=== PATIENT | male | born 1985 | race American Indian/Alaskan Native ===

== ENCOUNTER 2023-01-19 00:14 | Emergency (ER) | payer MEDICARE, MEDICAID, SELFPAY ==
[2023-01-19] VITALS (18 sets, daily range): BP systolic 120–153; BP diastolic 78–110; PULSE 80–120; RESP 18–28; TEMP 36.6; O2SAT 94–98; BMI 24.4
--- NOTE | 2023-01-19 00:30 | DI.RAD.S_ITS ---
PROCEDURE: XR ELBOW LT MIN 3V INDICATIONS: pain possible dislocation TECHNIQUE: 3 views of the elbow were acquired. COMPARISON: None. FINDINGS: Bones: Intra-articular fracture through the olecranon. The distal ulnar fracture component is dislocated anterior to the femoral trochlea. There is associated anterior dislocation of the radiocapitellar articulation. Soft tissues: Soft tissue edema is seen surrounding the elbow. IMPRESSION: Displaced olecranon fracture with anterior dislocation of the ulnar shaft fragment and anterior radiocapitellar dislocation. Approved by: Brenton Aguilar M.D. on 01/19/2023 at 0:54
--- NOTE | 2023-01-19 00:56 | ED.UPPEXIN ---
HPI - Extremity Injury (Upper) General Chief Complaint: Extremity Injury, Upper Stated Complaint: left side elbow pain Time Seen by Provider: 01/19/23 00:51 Source: patient Mode of arrival: Ambulatory History of Present Illness HPI narrative: 37-year-old male presents for dislocated left elbow. Patient states that he broke his elbow many years ago but never got it fixed. He states that occasionally his elbow we will dislocate and he is able to pull on it briefly to relocate it. Tonight after lifting an object he felt his elbow dislocated again, but was unable to pull it back into place and is here today for evaluation. Patient is screaming, requesting a popsicle stick to bite on, requesting pain medications. Further review of systems limited Review of Systems Review of Systems Narrative: limited due to patient condition Patient History Social History Smoking Status: Current every day smoker Smoking Status: Current every day smoker alcohol intake frequency: holidays/special occasions only Substance Use Type: does not use Exam Initial Vital Signs Initial Vital Signs: Vital Signs Temperature 97.9 F 01/19/23 00:20 Pulse Rate 120 H 01/19/23 00:20 Respiratory Rate 18 01/19/23 00:20 Blood Pressure 153/110 H 01/19/23 00:20 Pulse Oximetry 97 01/19/23 00:20 Oxygen Delivery Method Room Air 01/19/23 00:20 Const: Awake, alert, in pain, moderate to severe distress Cardiac: Tachycardia, regular rhythm MSK: Left elbow deformity, 2+ radial pulses Skin: Warm, Dry, intact, no rashes Neuro: AO x3, CN II-XII grossly intact, moves all extremities Procedures Orthopedic Joint Reduction Joint #1: Time Out Performed: Yes Side: left Joint Reduction Location: elbow Analgesia: procedural sedation Technique used: traction/counter-traction and direct manipulation Post-reduction neuro exam: intact and no change Post-reduction vascular: intact and no change Post Reduction X-Ray Obtained: Yes Post Reduction X-Ray Results: reduced Splint Applied: Yes Patient Tolerated Procedure: Well and No complications Orthopedic Splinting/Casting Injury #1: Side: left Upper Extremity Injury Location: elbow Upper Extremity Immobilizer: sling/shoulder immobilizer and posterior splint Post splinting neuro exam: intact and no change Post splinting vascular exam: no change Placed by: Provider Procedural Sedation Consent signed: Yes Time out performed: Yes Indication: fracture/dislocation reduction Presedation Evaluation: performed by myself ASA Class: II Mallampati Airway Classification: Class II Preparation: clinical research monitor applied, pulse oximeter, capnometry used, supplemental O2 applied, suction/airway equipment at bedside and IV secured IV Propofol dose (mg): 140 Intraservice time/total sedation time (min): 15 ED Sedation Level: Moderate (Concious) Patient Tolerated Procedure: Well and No complications Complications: none Course Orders Ordered: ED Orders 01/19/23 00:30 XR elbow LT min 3V Stat 01/19/23 01:43 XR elbow LT 2V Stat Discontinued Medications Morphine Sulfate (Morphine 4 Mg/Ml Inj) 4 mg IV NOW ONE Stop: 01/19/23 00:58 Last Admin: 01/19/23 01:19 Dose: 4 mg Documented By: ADITYA Propofol (Propofol 200 Mg/20 Ml Vial) 200 mg IV NOW ONE Stop: 01/19/23 00:58 Vital Signs Vital signs: Vital Signs - 8 hr 01/19/23 00:20 01/19/23 01:23 01/19/23 01:25 Temperature 97.9 F Pulse Rate 120 H 101 H 102 H Respiratory Rate 18 26 H 23 Blood Pressure 153/110 H Pulse Oximetry 97 97 Oxygen Delivery Method Room Air Room Air Oxygen Flow Rate 01/19/23 01:29 01/19/23 01:29 01/19/23 01:30 Temperature Pulse Rate 100 H 103 H Respiratory Rate 24 24 Blood Pressure 137/97 H Pulse Oximetry 97 96 Oxygen Delivery Method Room Air Nasal Cannula Oxygen Flow Rate 2 01/19/23 01:32 01/19/23 01:32 01/19/23 01:34 Temperature Pulse Rate 107 H 117 H Respiratory Rate 26 H 21 Blood Pressure 134/91 H Pulse Oximetry 96 97 Oxygen Delivery Method Nasal Cannula Nasal Cannula Oxygen Flow Rate 2 2 01/19/23 01:34 01/19/23 01:35 01/19/23 01:39 Temperature Pulse Rate 96 H 94 H Respiratory Rate 28 H 24 Blood Pressure 142/98 H Pulse Oximetry 97 96 94 Oxygen Delivery Method Nasal Cannula Nasal Cannula Nasal Cannula Oxygen Flow Rate 2 01/19/23 01:39 01/19/23 01:40 01/19/23 01:40 Temperature Pulse Rate 96 H Respiratory Rate 21 Blood Pressure 120/84 124/80 Pulse Oximetry Oxygen Delivery Method Nasal Cannula Nasal Cannula Nasal Cannula Oxygen Flow Rate 01/19/23 01:45 01/19/23 01:45 01/19/23 01:50 Temperature Pulse Rate 94 H 88 Respiratory Rate 18 Blood Pressure 131/78 Pulse Oximetry 97 Oxygen Delivery Method Nasal Cannula Oxygen Flow Rate 01/19/23 01:50 01/19/23 01:51 01/19/23 01:51 Temperature Pulse Rate 88 87 Respiratory Rate Blood Pressure 132/88 Pulse Oximetry 96 96 Oxygen Delivery Method Room Air Room Air Oxygen Flow Rate 01/19/23 01:55 01/19/23 01:57 01/19/23 01:57 Temperature Pulse Rate 83 85 Respiratory Rate 21 24 Blood Pressure 143/78 H Pulse Oximetry 96 95 Oxygen Delivery Method Room Air Room Air Oxygen Flow Rate 01/19/23 02:00 01/19/23 02:01 01/19/23 02:01 Temperature Pulse Rate 83 80 Respiratory Rate 23 22 Blood Pressure 136/83 Pulse Oximetry 97 95 Oxygen Delivery Method Room Air Room Air Oxygen Flow Rate 01/19/23 02:05 01/19/23 02:05 Temperature Pulse Rate 80 Respiratory Rate 24 Blood Pressure 135/90 Pulse Oximetry 96 Oxygen Delivery Method Room Air Oxygen Flow Rate MDM - Extremity Injury (Upper) Differential Diagnosis Differential diagnosis: Likely sprain and strain of wrist, fracture of wrist and dislocation of finger MDM Narrative Medical decision making narrative: Patient with chronic, longstanding elbow fracture with spontaneous dislocation, unable to be reduced at home with patient's usual methods. Patient neurovascularly intact, however he is screaming in pain and x-ray technique limited due to patient cooperation. Patient was given morphine for pain control, procedural sedation per procedure notes. Using gentle manipulation the dislocation was reduced and successfully placed in long-arm splint with pronation. Patient neurovascularly intact pre and postprocedure. Placed in sling. X-ray confirms reduction. Patient counseled on the importance of following up with Orthopedic surgery. ED return precautions discussed at bedside. Patient expressed understanding of the plan and is in agreement at this time. All questions answered at the time of discharge. Discharge Plan Departure Patient Disposition: Home Clinical Impression: Dislocated elbow Qualifiers: Encounter type: initial encounter Laterality: left Qualified Code(s): S53.105A - Unspecified dislocation of left ulnohumeral joint, initial encounter Instructions: DI for Elbow Dislocation, How to Take Care of Your Splint Referrals: Barbara Oquendo MD [Physician] - Stand Alone Forms: Patient Portal/API
[2023-01-19] MEDS: MORPHINE 4 MG/ML INJ IV (01:19)
[2023-01-19] MEDS: propofoL 200 MG/20 ML VIAL IV (01:33)
--- NOTE | 2023-01-19 01:43 | DI.RAD.S_ITS ---
PROCEDURE: XR ELBOW LT 2V INDICATIONS: post reduction attempt TECHNIQUE: Single lateral view of the elbow was acquired. COMPARISON: [facility], CR, XR ELBOW LT MIN 3V, 01/19/2023, 0:32. FINDINGS: Bones: Status post reduction with taoist of radiocapitellar and ulnar humeral alignment. Mildly displaced intra-articular fracture of the olecranon is again seen. No definite radial fracture or distal humeral fracture is identified. Soft tissues: Elbow joint effusion is present. Soft tissue edema is noted surrounding the elbow. IMPRESSION: Successful elbow reduction. Mildly displaced intra-articular fracture of the olecranon is again seen. Approved by: Brenton Aguilar M.D. on 01/19/2023 at 2:05
== END 2023-01-19 02:15 | disposition home or self-care (01) ==
PROVIDERS: Emergency Provider Emergency Medicine
DX: M24.422 Recurrent dislocation, left elbow (principal)
CPT/HCPCS: 24600; 73070; 73080; 99152; 99283; 99285; 99291; J2270; J2704

== ENCOUNTER 2023-07-17 13:30 | Emergency (ER) | payer MEDICARE, MEDICAID, SELFPAY ==
[2023-07-17] VITALS (29 sets, daily range): BP systolic 120–212; BP diastolic 62–140; PULSE 76–93; RESP 18–58; TEMP 37.2; O2SAT 92–100; BMI 30.2
--- NOTE | 2023-07-17 13:46 | DI.RAD.S_ITS ---
PROCEDURE: XR ELBOW LT MIN 3V INDICATIONS: r/o left elbow dislocation TECHNIQUE: 3 views of the elbow were acquired. COMPARISON: [facility], CR, XR ELBOW LT 2V, 01/19/2023, 1:44. [facility], CR, XR ELBOW LT MIN 3V, 01/19/2023, 0:32. FINDINGS: Bones: Fracture dislocation of the elbow, with fracture of the olecranon. Soft tissues: Large elbow joint effusion. No suspicious soft tissue calcifications. IMPRESSION: Fracture dislocation of the elbow. Differential includes a chronic nonunited fracture of t olecranon with acute dislocation. Dictated by: Yovanny Gao M.D. on 07/17/2023 at 14:46 Approved by: Yovanny Gao M.D. on 07/17/2023 at 14:47
[2023-07-17] MEDS: HYDROMORPHONE 1 MG INJ IM (13:50)
--- NOTE | 2023-07-17 14:00 | PC.NURSE ---
Provider brought to triage to assist with evaluation of patient. pateint yelling and thrashing about sorry I can't control my body Attempted to remove patients jackets and place elbow in sling but unable to due to pain and body movements of patient. Unable to get full set of vitals in triage
[2023-07-17] MEDS: SODIUM CHLORIDE 0.9% 1,000 ML 125 ML IV (19:16)
--- NOTE | 2023-07-17 19:22 | PC.NURSE ---
Pt states he was taking off a book bag/bag and felt a pop and extreme pain. pt states he has previously had his elbow dislocated and it was supposed to be healed in january.
[2023-07-17] MEDS: HYDROMORPHONE 1 MG INJ IV (19:28)
--- NOTE | 2023-07-17 20:14 | ED_ITS ---
HPI - General Adult General Chief complaint: Extremity Injury, Upper Stated complaint: states arm dislocation Time Seen by Provider: 07/17/23 13:50 Source: patient Mode of arrival: Ambulatory Limitations: no limitations History of Present Illness HPI narrative: Patient is a 37-year-old male here for evaluation of a left elbow dislocation. He states that he has dislocated his elbow in the past. Last time was at the end of last year. He states that today he was trying to berry picker a backpack to put over his shoulder when his elbow dislocated. He states it feels very similar to what it did the last time that he dislocated his elbow. He was having quite a bit of discomfort in his left elbow. No other injuries from the event. He states he has not followed up with Orthopedics after his last elbow dislocation his insurance company would not cover is visit. Related Data Allergies Allergy/AdvReac Type Severity Reaction Status Date / Time No Known Drug Allergies Allergy Verified 07/17/23 13:46 Review of Systems Constitutional Constitutional: Reports system reviewed and no additional complaints, except as documented Musculoskeletal Musculoskeletal: Reports system reviewed and no additional complaints, except as documented Integumentary/Breasts Skin/Breast: Reports system reviewed and no additional complaints, except as documented Neurologic Neurologic: Reports system reviewed and no additional complaints, except as documented Patient History Social History Smoking Status: Current every day smoker Smoking Status: Current every day smoker alcohol intake frequency: holidays/special occasions only Substance Use Type: does not use Exam Initial Vital Signs Initial Vital Signs: Vital Signs Temperature 98.9 F 07/17/23 14:32 Pulse Rate 92 H 07/17/23 14:32 Respiratory Rate 18 07/17/23 14:32 Blood Pressure 212/140 H 07/17/23 14:32 Pulse Oximetry 96 07/17/23 14:32 Oxygen Delivery Method Room Air 07/17/23 14:32 Cardio Pulses: radial pulses present on the left Skin General: no rashes or lesions noted Neuro Sensory Exam: no sensory deficits noted Extrem Other: Obvious deformity to left elbow. Unable to move the left elbow. His left shoulder is unremarkable. Procedures Orthopedic Joint Reduction Joint #1: Side: left Joint Reduction Location: elbow Analgesia: procedural sedation Technique used: direct manipulation Post-reduction neuro exam: no change Post-reduction vascular: no change Post Reduction X-Ray Obtained: Yes Post Reduction X-Ray Results: reduced Splint Applied: Yes Orthopedic Splinting/Casting Injury #1: Side: left Upper Extremity Injury Location: elbow Upper Extremity Immobilizer: posterior splint Post splinting neuro exam: no change Post splinting vascular exam: no change Placed by: Provider Procedural Sedation Consent signed: Yes Indication: fracture/dislocation reduction Preparation: satellite project site monitor applied, pulse oximeter, capnometry used, suction/airway equipment at bedside and IV secured IV Propofol dose (mg): 150 Intraservice time/total sedation time (min): 20 ED Sedation Level: Moderate (Concious) Patient Tolerated Procedure: Well and No complications Course Orders Ordered: ED Orders 07/17/23 20:49 XR elbow LT min 3V Stat Discontinued Medications Hydromorphone HCl (Hydromorphone 1 Mg Inj) 1 mg IM NOW ONE Stop: 07/17/23 13:47 Last Admin: 07/17/23 13:50 Dose: 1 mg Documented By: MAG Hydromorphone HCl (Hydromorphone 1 Mg Inj) 1 mg IV NOW ONE Stop: 07/17/23 19:20 Last Admin: 07/17/23 19:28 Dose: 1 mg Documented By: TEE Sodium Chloride (Normal Saline 0.9%) 1,000 mls @ 125 mls/hr IV CONT HILDA Last Infusion: 07/17/23 21:54 Dose: Infused Documented By: Admin: 07/17/23 19:16 Dose: 125 mls/hr Documented By: TEE Propofol (Propofol 200 Mg/20 Ml Vial) 150 mg IV NOW ONE Stop: 07/17/23 19:40 Last Admin: 07/17/23 20:28 Dose: 150 mg Documented By: [facility] Vital Signs Vital signs: Vital Signs - 8 hr 07/17/23 19:46 07/17/23 19:50 07/17/23 19:50 Pulse Rate 84 82 Respiratory Rate 24 29 H Blood Pressure 138/89 138/89 Pulse Oximetry 97 98 Oxygen Flow Rate 07/17/23 19:55 07/17/23 19:55 07/17/23 20:00 Pulse Rate 81 Respiratory Rate 24 Blood Pressure 141/87 H 156/94 H Pulse Oximetry 97 Oxygen Flow Rate 07/17/23 20:00 07/17/23 20:05 07/17/23 20:05 Pulse Rate 85 81 Respiratory Rate 39 H 33 H Blood Pressure 144/88 H Pulse Oximetry 96 96 Oxygen Flow Rate 07/17/23 20:11 07/17/23 20:11 07/17/23 20:15 Pulse Rate 86 Respiratory Rate 27 H Blood Pressure 132/102 H 142/96 H Pulse Oximetry 97 Oxygen Flow Rate 07/17/23 20:15 07/17/23 20:20 07/17/23 20:20 Pulse Rate 79 93 H Respiratory Rate 37 H 33 H Blood Pressure 141/111 H Pulse Oximetry 97 95 Oxygen Flow Rate 07/17/23 20:26 07/17/23 20:26 07/17/23 20:30 Pulse Rate 90 83 Respiratory Rate 33 H 27 H Blood Pressure 124/97 H Pulse Oximetry 92 94 Oxygen Flow Rate 2 07/17/23 20:35 07/17/23 20:36 07/17/23 20:36 Pulse Rate 85 90 Respiratory Rate 58 H 56 H Blood Pressure 138/86 Pulse Oximetry 97 95 Oxygen Flow Rate 07/17/23 20:40 07/17/23 20:40 07/17/23 20:46 Pulse Rate 93 H 89 Respiratory Rate 50 H 46 H Blood Pressure 132/76 Pulse Oximetry 98 97 Oxygen Flow Rate 07/17/23 20:46 07/17/23 20:51 07/17/23 20:51 Pulse Rate 88 Respiratory Rate 36 H Blood Pressure 129/71 142/84 H Pulse Oximetry 99 Oxygen Flow Rate 07/17/23 20:55 07/17/23 20:55 07/17/23 21:00 Pulse Rate 79 84 Respiratory Rate 24 32 H Blood Pressure 135/75 Pulse Oximetry 99 99 Oxygen Flow Rate 07/17/23 21:01 07/17/23 21:01 07/17/23 21:06 Pulse Rate 84 Respiratory Rate 44 H Blood Pressure 120/68 178/81 H Pulse Oximetry 99 Oxygen Flow Rate 07/17/23 21:06 07/17/23 21:11 07/17/23 21:11 Pulse Rate 80 84 Respiratory Rate 45 H 29 H Blood Pressure 157/67 H Pulse Oximetry 100 99 Oxygen Flow Rate 07/17/23 21:16 07/17/23 21:16 07/17/23 21:21 Pulse Rate 80 85 Respiratory Rate 40 H 48 H Blood Pressure 139/70 Pulse Oximetry 100 99 Oxygen Flow Rate 06/04/24 21:21 07/17/23 21:26 07/17/23 21:26 Pulse Rate 78 Respiratory Rate 57 H Blood Pressure 146/73 H 157/62 H Pulse Oximetry 99 Oxygen Flow Rate 07/17/23 21:30 07/17/23 21:31 07/17/23 21:31 Pulse Rate 77 79 Respiratory Rate 49 H 47 H Blood Pressure 148/70 H Pulse Oximetry 100 100 Oxygen Flow Rate 07/17/23 21:36 07/17/23 21:36 07/17/23 21:41 Pulse Rate 82 Respiratory Rate 55 H Blood Pressure 136/83 141/85 H Pulse Oximetry 99 Oxygen Flow Rate 07/17/23 21:41 07/17/23 21:46 07/17/23 21:46 Pulse Rate 79 76 Respiratory Rate 43 H 44 H Blood Pressure 130/62 Pulse Oximetry 99 99 Oxygen Flow Rate Medical Decision Making Medical Records Medical records reviewed: Yes I reviewed the patient's medical records. Imaging Data Extremity x-ray #1: Radiologist's Impression: PROCEDURE: XR ELBOW LT MIN 3V INDICATIONS: r/o left elbow dislocation TECHNIQUE: 3 views of the elbow were acquired. COMPARISON: [facility], , XR ELBOW LT 2V, 01/19/2023, 1:44. [facility], XR ELBOW LT MIN 3V, 01/19/2023, 0:32. FINDINGS: Bones: Fracture dislocation of the elbow, with fracture of the olecranon. Soft tissues: Large elbow joint effusion. No suspicious soft tissue calcifications. IMPRESSION: Fracture dislocation of the elbow. Differential includes a chronic nonunited fracture of t olecranon with acute dislocation. Extremity x-ray #2: Radiologist's Impression: ROCEDURE: XR ELBOW LT MIN 3V INDICATIONS: Postreduction left elbow TECHNIQUE: 2 views of the elbow were acquired. COMPARISON: [facility], , XR ELBOW LT MIN 3V, 07/17/2023, 14:07. [facility], XR ELBOW LT MIN 3V, 01/19/2023, 0:32. FINDINGS: Bones: Status post elbow reduction with improved alignment. Radiocapitellar alignment appears normal. Mild residual displacement of the olecranon fracture. Overlying cast material obscures fine bony detail. Soft tissues: Soft tissue edema is seen surrounding the although with presumed elbow effusion. IMPRESSION: Status post elbow reduction with significantly improved alignment. 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 The patient was sedated. The dislocation was reduced. A splint was placed. Patient was advised that he does need a follow-up with Orthopedic surgery for definitive treatment or he potentially could keep dislocated his elbow. Patient expressed understanding agreement with the plan. Discharge Plan Departure Patient Disposition: Home Clinical Impression: Dislocated elbow Instructions: DI for Elbow Dislocation, How to Take Care of Your Splint Activity Restrictions/Additional Instructions: The splint that was placed in the emergency department today should stay in place for the next 24-48 hours. After that you can take it off. It was going to be important that you follow-up with your primary doctor and also an orthopedic surgeon. You can contact the orthopedic surgeon's number provided below. Return to the emergency department for new symptoms. Referrals: Ramona Berrios MD [Physician] - Stand Alone Forms: Patient Portal/API
[2023-07-17] MEDS: propofoL 200 MG/20 ML VIAL 150 MG IV (20:28)
--- NOTE | 2023-07-17 20:49 | DI.RAD.S_ITS ---
PROCEDURE: XR ELBOW LT MIN 3V INDICATIONS: Postreduction left elbow TECHNIQUE: 2 views of the elbow were acquired. COMPARISON: [facility], CR, XR ELBOW LT MIN 3V, 07/17/2023, 14:07. [facility], CR, XR ELBOW LT MIN 3V, 01/19/2023, 0:32. FINDINGS: Bones: Status post elbow reduction with improved alignment. Radiocapitellar alignment appears normal. Mild residual displacement of the olecranon fracture. Overlying cast material obscures fine bony detail. Soft tissues: Soft tissue edema is seen surrounding the although with presumed elbow effusion. IMPRESSION: Status post elbow reduction with significantly improved alignment. Approved by: Brenton Aguilar M.D. on 07/17/2023 at 21:21
== END 2023-07-17 22:12 | disposition home or self-care (01) ==
PROVIDERS: Emergency Provider Emergency Medicine
DX: S53.105A Unspecified dislocation of left ulnohumeral joint, initial encounter (principal)
CPT/HCPCS: 24600; 29125; 73080; 96361; 96372; 96374; 99152; 99284; 99285; J1170; J2704